=== PATIENT | female | born 1985 | race Caucasian/White ===

== ENCOUNTER → 2017-03-18 | Emergency (ER) | payer OTHER ==
[~2017-03-18] VITALS: Ht 160 cm; Wt 63.5 kg
[~2017-03-18] MED LIST: PRENATAL CAPLE1 EACH PO
== END | disposition left against medical advice (07) ==
LOC: ER 14:53
DX: K52.89 Other specified noninfective gastroenteritis and colitis (principal)

== ENCOUNTER 2018-03-05 22:01 | Emergency (ER) | payer OTHER ==
[~2018-03-05] VITALS: Ht 165.1 cm; Wt 77.1 kg
== END 2018-03-06 03:05 | disposition home or self-care (01) ==
LOC: ER 22:01
DX: O20.0 Threatened abortion (principal)

== ENCOUNTER 2018-05-02 14:22 | Emergency (ER) | payer OTHER ==
[~2018-05-02] VITALS: Ht 160 cm; Wt 68.0 kg
== END 2018-05-02 19:09 | disposition home or self-care (01) ==
LOC: ER 14:22
DX: O26.892 Other specified pregnancy related conditions, second trimester (principal); R10.2 Pelvic and perineal pain; Z34.82 Encounter for supervision of other normal pregnancy, second trimester

== ENCOUNTER 2018-07-21 12:58 | Inpatient (IN) | payer OTHER ==
[~2018-07-21] VITALS: Ht 160 cm; Wt 73.0 kg
[2018-07-21] MEDS ORDERED: PROGESTERO50 MG/1 ML IM (14:13)
== END 2018-07-25 12:43 | DRG 831 ==
LOC: LDR 12:58 → OB/GYN 07-23 13:26
PROVIDERS: ADMIT Specialist
PROC: BY4FZZZ Ultrasonography of Third Trimester, Single Fetus (ICD-10-PCS; principal; 2018-07-22)
PROC: BU4CZZZ Ultrasonography of Uterus and Ovaries (ICD-10-PCS; 2018-07-22)
DX: O26.873 Cervical shortening, third trimester (principal); O60.03 Preterm labor without delivery, third trimester; Z3A.31 31 weeks gestation of pregnancy

== ENCOUNTER 2018-08-24 15:01 | Inpatient (IN) | payer OTHER ==
[~2018-08-24] VITALS: Ht 160 cm; Wt 2.3 kg
[~2018-08-24 15:01] MED LIST changes: +PROGESTERO50 MG/1 ML IM
== END 2018-08-27 10:26 | DRG 786 ==
LOC: OB/GYN 15:01 → O/R 15:01 → LDR 15:01 → O/R 16:59 → OB/GYN 18:42
PROVIDERS: ADMIT Specialist
PROC: 4A1HXCZ Monitoring of Products of Conception, Cardiac Rate, External Approach (ICD-10-PCS; 2018-08-24)
PROC: 10D00Z1 Extraction of Products of Conception, Low, Open Approach (ICD-10-PCS; principal; 2018-08-24 17:00)
DX: O34.211 Maternal care for low transverse scar from previous cesarean delivery (principal); O60.14X0 Preterm labor third trimester with preterm delivery third trimester, not applicable or unspecified; O82 Encounter for cesarean delivery without indication; Z37.0 Single live birth; Z3A.35 35 weeks gestation of pregnancy; Z22.330 Carrier of Group B streptococcus